=== PATIENT | male | born 1980 | race Caucasian/White ===

== ENCOUNTER 2017-06-10 00:47 | Emergency (ER) | payer OTHER ==
[~2017-06-10] VITALS: Ht 170.1 cm; Wt 74.8 kg
[~2017-06-10 00:47] MED LIST: ACYCLOVIR800 MG PO; ANAPROX DS550 MG PO; CIPRODEX 0.3%-7.5 ML OT; CLEOCIN HCL150 MG PO; CLINDAMYCIN HC300 MG PO; FLEXERIL10 MG PO; HYDROCODONE BIT1 T11 PO; LIDEX0.05% T; MOTRIN800 MG PO; PREDNICOT20 MG PO; ROBAXIN750 MG PO; TAMIFLU75 MG PO; TRAMADOL HCL50 MG PO; ULTRAM50 MG PO
[2017-06-10 00:54] VITALS: BP 154/88
[2017-06-10] MEDS ORDERED: ULTRAM50 MG PO (01:48)
[2017-06-10] MEDS ORDERED: Motrin,Rufen800 MG PO (01:48)
== END 2017-06-10 02:08 | disposition home or self-care (01) ==
LOC: ED 00:47
DX: S66.912A Strain of unspecified muscle, fascia and tendon at wrist and hand level, left hand, initial encounter (principal); F17.200 Nicotine dependence, unspecified, uncomplicated; Z88.0 Allergy status to penicillin; Z88.1 Allergy status to other antibiotic agents; W18.39XA Other fall on same level, initial encounter; Y93.I9 Activity, other involving external motion; Y92.89 Other specified places as the place of occurrence of the external cause; Y99.8 Other external cause status

== ENCOUNTER 2017-06-11 15:32 | Emergency (ER) | payer OTHER ==
[~2017-06-11] VITALS: Ht 177.8 cm; Wt 113.4 kg
[~2017-06-11 15:32] MED LIST changes: +Motrin,Rufen800 MG PO
[2017-06-11 15:42] VITALS: BP 160/92
== END 2017-06-11 17:28 | disposition home or self-care (01) ==
LOC: ED 15:32
DX: M25.532 Pain in left wrist (principal); F17.200 Nicotine dependence, unspecified, uncomplicated; Z88.0 Allergy status to penicillin; Z88.1 Allergy status to other antibiotic agents

== ENCOUNTER 2021-02-15 14:46 | Emergency (ER) | payer OTHER ==
[~2021-02-15] VITALS: Ht 180.3 cm; Wt 104.3 kg
[~2021-02-15 14:46] MED LIST changes: +VIBRAMYCIN100 MG PO
[2021-02-15 14:54] VITALS: BP 153/88
== END 2021-02-15 15:41 | disposition left against medical advice (07) ==
LOC: ED 14:46
DX: J00 Acute nasopharyngitis [common cold] (principal); Z53.21 Procedure and treatment not carried out due to patient leaving prior to being seen by health care provider

== ENCOUNTER → 2021-06-19 | Outpatient (CLI) | payer OTHER | END | disposition home or self-care (01) | LOC: COVID19 16:00 | PROVIDERS: ATTEND Internal Medicine | DX: Z11.52 Encounter for screening for COVID-19 (principal) ==

== ENCOUNTER 2021-11-25 11:55 | Emergency (ER) | payer OTHER ==
[~2021-11-25] VITALS: Ht 180.3 cm; Wt 99.8 kg
[2021-11-25 12:05] VITALS: BP 157/94
[2021-11-25] MEDS ORDERED: PREDNISONE50 MG PO (12:18)
== END 2021-11-25 12:21 | disposition home or self-care (01) ==
LOC: ED 11:55
DX: L30.9 Dermatitis, unspecified (principal); H61.23 Impacted cerumen, bilateral; J45.909 Unspecified asthma, uncomplicated; F17.200 Nicotine dependence, unspecified, uncomplicated; Z88.0 Allergy status to penicillin; Z88.1 Allergy status to other antibiotic agents; Z79.899 Other long term (current) drug therapy; Z79.2 Long term (current) use of antibiotics

== ENCOUNTER 2024-03-28 18:52 | Emergency (ER) | payer OTHER ==
[~2024-03-28] VITALS: Ht 180.3 cm; Wt 108.4 kg
[~2024-03-28 18:52] MED LIST changes: +PREDNISONE50 MG PO
[2024-03-28 19:00] VITALS: BP 158/92
[2024-03-28] MEDS ORDERED: NAPROXEN 250 MG TAB PO ONE (19:10)
[2024-03-28] MEDS ORDERED: NAPROXEN250 MG PO (19:38)
== END 2024-03-28 19:45 | disposition home or self-care (01) ==
LOC: ED 18:52
DX: S30.0XXA Contusion of lower back and pelvis, initial encounter (principal); J45.909 Unspecified asthma, uncomplicated; Z88.0 Allergy status to penicillin; Z88.1 Allergy status to other antibiotic agents; W51.XXXA Accidental striking against or bumped into by another person, initial encounter; Y93.89 Activity, other specified; Y92.009 Unspecified place in unspecified non-institutional (private) residence as the place of occurrence of the external cause; Y99.8 Other external cause status